=== PATIENT | male | born 1940 | race Caucasian/White ===

== ENCOUNTER 2018-01-23 13:30 | Emergency (ER) | payer OTHER ==
[~2018-01-23] VITALS: Ht 175.3 cm; Wt 115.2 kg
[2018-01-23 13:47] VITALS: Ht 175.3 cm; Wt 115.2 kg
[2018-01-23 16:07] VITALS: BP 151/83
== END 2018-01-23 16:07 | disposition home or self-care (01) ==
LOC: ED 13:30
DX: S81.812A Laceration without foreign body, left lower leg, initial encounter (principal); W26.8XXA Contact with other sharp object(s), not elsewhere classified, initial encounter; Y93.89 Activity, other specified; Y92.89 Other specified places as the place of occurrence of the external cause; Y99.8 Other external cause status
CPT/HCPCS: J1885; J2001